=== PATIENT | male | born 1980 | race Caucasian/White ===

== ENCOUNTER → 2019-12-30 09:55 | Outpatient (CLI) | payer OTHER, SELFPAY ==
[2020-01-01 11:27] LABS: Immunoglobulin M 69 mg/dL (20-172); V-Zoster IgG (Immunity) 1857 index (Immune >165)
== END ==
PROVIDERS: Referring Provider Dermatology Pediatric Dermatology; Visit Provider Dermatology Pediatric Dermatology
DX: L08.9 Local infection of the skin and subcutaneous tissue, unspecified (principal)
CPT/HCPCS: 36415; 82784; 86787

== ENCOUNTER → 2023-05-26 | Outpatient (CLI) | payer OTHER, SELFPAY ==
[2023-05-26 11:32] LABS: Cholesterol 174 mg/dL (200); Creatinine, Serum 0.81 mg/dL (0.70-1.30); EST Glomerular Filtration Rate 110 mL/min (>60); Est Glom Filt Rate - Afr Amer 133 mL/min (>60); High Density Lipoprotein 60 mg/dL; Triglycerides 78 mg/dL; Very Low Density Lipoprotein 16 mg/dL (5-40)
[2023-05-28 09:20] LABS: Hepatitis C Antibody Non-Reactive (Nonreactive)
== END | disposition home or self-care (01) ==
LOC: LAB 10:28
PROVIDERS: PCP Family Medicine; Referring Provider Family Medicine; Visit Provider Family Medicine
DX: Z00.00 Encounter for general adult medical examination without abnormal findings (principal); Z13.220 Encounter for screening for lipoid disorders; Z11.59 Encounter for screening for other viral diseases
CPT/HCPCS: 80061; 82565; 86803

== ENCOUNTER 2023-06-05 13:10 | Day surgery (SDC) | payer OTHER, SELFPAY ==
[2023-06-05 13:27] VITALS: BP 128/82; PULSE 73; RESP 16; TEMP 36.6; O2SAT 100; BMI 22.1
--- NOTE | 2023-06-05 13:53 | HP.PCM_ITS ---
HPI - General General Date of Admission: 06/05/23 Date of Service: 06/05/23 Chief Complaint: Screening colonoscopy HPI Narrative JOSIE BASS, is a 43 M who presents [facility] Medical History (Updated 06/01/23 @ 15:09 by Jumana Noriega) Alcohol use Family hx of colon cancer Former smoker Wears contact lenses Home Medications NK 02/03/22 [History Last Taken Unknown] Allergy/AdvReac Type Severity Reaction Status Date / Time No Known Allergies Allergy Verified 06/05/23 13:27 Family History (Updated 03/09/23 @ 10:47 by Marcella Lucas) Uncle Colon cancer Grandmother Thyroid cancer Grandfather Lung cancer Mother Basal cell carcinoma Surgical History (Updated 06/01/23 @ 15:11 by Jumana Noriega) No significant past surgical history Social History (Updated 03/09/23 @ 10:48 by Marcella Lucas) household members: spouse current occupational status: employed Smoking Status: Former smoker ROS Review of Systems ROS Unobtainable: other Constitutional Constitutional: Denies fatigue, fever(s), poor appetite, weight gain or weight loss ENT HEENT: Denies mouth lesions Cardiovascular Cardiovascular: Denies abdominal bloating, abdominal edema or abdominal pain Respiratory/Chest Respiratory/Chest: Denies change in mental status, change in phlegm color, chest congestion or chest tightness Gastrointestinal Gastrointestinal: Denies belching, bloating, change in bowel habits, change in stool character, chewing difficulty, coffee ground emesis, constipation, cramping, diarrhea, dyspepsia, dysphagia, early satiety, excessive flatus, fecal incontinence, heartburn, hematemesis, hematochezia, hemorrhoids, loose stools, melena, nausea, odynophagia, rectal bleeding, tenesmus, vomiting or weight changes Genitourinary Genitourinary: Denies abdominal discomfort, burning urination or itching Musculoskeletal Musculoskeletal: Reports as per HPI; Denies muscle weakness or myalgias Integumentary Integumentary: Denies jaundice Neurologic Neurologic: Denies lack of coordination or weakness Psychiatric Psychiatric: Denies confusion, depression, memory loss, mood swings, paranoia or suicidal ideation Endocrine Endocrinology: Denies systems reviewed and no addt'l complaints, except as documented Hematologic/Lymphatic Hematologic/Lymphatic: Denies anemia, easy bleeding, easy bruising or lymphadenopathy Allergic/Immunologic Allergic/Immunologic: Denies systems reviewed and no addt'l complaints, except as documented Vital Signs Vital Signs Vital Signs: 06/05/23 13:27 06/05/23 13:27 Temperature 97.8 F Temperature Source Temporal Pulse Rate 73 Respiratory Rate 16 Respiratory Pattern Normal Blood Pressure 128/82 H Blood Pressure Mean 97 Blood Pressure Source Monitor Blood Pressure Position Semi-Fowlers Blood Pressure Location Right Arm Pulse Ox 100 Oxygen Delivery Method Room Air Weight Weight: 133 lb 6.075 oz Body Mass Index (BMI) 22.1 Physical Exam Const alert General Appearance: cooperative Orientation / Consciousness: oriented to person HEENT hearing grossly normal bilaterally Head and Scalp: normal to inspection Face and Sinus: face symmetric Nose: external nose normal Mouth: oral and palatal mucosa normal Eyes conjunctivae normal General Eye: normal appearance of both eyes Neck full ROM General: normal visual inspection Lymph Lymphatic: no lymphadenopathy noted Chest inspection of chest normal and palpation of chest normal Chest: symmetrical chest wall rise Resp normal respiratory effort Effort and Inspection: able to speak in complete sentences Cardio regular rate GI non-distended Percussion: normal to percussion Rectal Exam: deferred Neuro Speech: speech normal Gait (Neuro): normal gait Assessment & Plan Assessment/Plan (1) Encounter for screening for malignant neoplasm of colon: PLAN: He was explained alternatives, risk, benefits including outstanding bleeding, sepsis, patient, need for emergent surgery . He will have an ASA of 2.
[2023-06-05] MEDS: Lactated Ringers 1,000 ML 15 ML IV (14:00)
[2023-06-05 14:45] VITALS: BP 128/82; BP 92/47; PULSE 75; RESP 16; TEMP 36.3; O2SAT 99
[2023-06-05 14:50] VITALS: BP 102/65; BP 128/82; PULSE 72; RESP 16; O2SAT 99
--- NOTE | 2023-06-05 14:54 | OP.COLON_ITS ---
Patient Name: Brad Mclean Procedure Date: 06/05/2023 2:11 PM Date of : 1980 Age: 43 Procedure: Colonoscopy Indications: Screening for colorectal malignant neoplasm Providers: Sunny Mckee DO Referring MD: Berny Talbert Medicines: Propofol per Anesthesia Patient Profile: This is a 43 year old male. Refer to note in patient chart for documentation of history and physical. Last Colonoscopy: none. The patient's first colonoscopy is today. Complications: No immediate complications. Procedure: Pre-Anesthesia Assessment: - Prior to the procedure, a History and Physical was performed, and patient medications and allergies were reviewed. The risks and benefits of the procedure and the sedation options and risks were discussed with the patient. All questions were answered and informed consent was obtained. Patient identification and proposed procedure were verified by the physician in the pre-procedure area. Mental Status Examination: normal. Prophylactic Antibiotics: The patient does not require prophylactic antibiotics. Prior Anticoagulants: The patient has taken no anticoagulant or antiplatelet agents. ASA Grade Assessment: II - A patient with mild systemic disease. After reviewing the risks and benefits, the patient was deemed in satisfactory condition to undergo the procedure. The anesthesia plan was to use monitored anesthesia care (MAC). Immediately prior to administration of medications, the patient was re-assessed for adequacy to receive sedatives. The heart rate, respiratory rate, oxygen saturations, blood pressure, adequacy of pulmonary ventilation, and response to care were monitored throughout the procedure. The physical status of the patient was re-assessed after the procedure. After I obtained informed consent, the scope was passed under direct vision. Throughout the procedure, the patient's blood pressure, pulse, and oxygen saturations were monitored continuously. The Colonoscope was introduced through the anus and advanced to the cecum, identified by appendiceal orifice and ileocecal valve. The colonoscopy was performed without difficulty. The patient tolerated the procedure well. The quality of the bowel preparation was good. Scope In: 2:29:23 PM Scope Withdrawal Time 0 hours 7 minutes 5 seconds Scope Out: 2:40:01 PM Total Procedure Duration Time 0 hours 10 minutes 38 seconds Findings: The entire examined colon appeared normal on direct and retroflexion views. Impression: - The entire examined colon is normal on direct and retroflexion views. - No specimens collected. Recommendation: - Discharge patient to home. - Resume previous diet. - Continue present medications. - Repeat colonoscopy in 10 years for screening purposes. Procedure Code(s): --- Professional --- G0121, Colorectal cancer screening; colonoscopy on individual not meeting criteria for high risk CPT copyright 2021 [employer]. All rights reserved. The codes documented in this report are preliminary and upon faculty support coordinator review may be revised to meet current compliance requirements. Sunny Mckee DO 06/05/2023 2:54:25 PM This report has been signed electronically. Number of Addenda: 0 Note Initiated On: 06/05/2023 2:11 PM
--- NOTE | 2023-06-05 14:54 | OP.CCLET_ITS ---
06/05/2023 Berny Talbert [address] [place] [address] Re : Colonoscopy procedure for Brad Mclean Dear Dr. Talbert This procedure was performed on Monday, June 05, 2023. My impressions and recommendations are as follows: Impressions : - The entire examined colon is normal on direct and retroflexion views. - No specimens collected. Recommendations : - Discharge patient to home. - Resume previous diet. - Continue present medications. - Repeat colonoscopy in 10 years for screening purposes. My findings are described in the full procedure note, which is enclosed. If I can be of further assistance, please feel free to contact me at . Sincerely, Sunny Mckee, 06/05/2023 2:54:25 PM This report has been signed electronically.
[2023-06-05 14:55] VITALS: BP 103/66; BP 128/82; PULSE 71; RESP 16; O2SAT 99
[2023-06-05 15:00] VITALS: BP 106/79; BP 128/82; PULSE 67; RESP 16; TEMP 36.5; O2SAT 99
[2023-06-05 15:25] VITALS: BP 128/82
== END 2023-06-05 15:43 | disposition home or self-care (01) ==
LOC: EN 13:12 → AC 13:13
PROVIDERS: PCP Family Medicine; Referring Provider Family Medicine; Visit Provider Internal Medicine Gastroenterology
PROC: 0DJD8ZZ Inspection of Lower Intestinal Tract, Via Natural or Artificial Opening Endoscopic (ICD-10-PCS; CPT 45378; principal; 2023-06-05 14:10)
DX: Z12.11 Encounter for screening for malignant neoplasm of colon (principal); Z80.0 Family history of malignant neoplasm of digestive organs; Z87.891 Personal history of nicotine dependence
CPT/HCPCS: G0121; J7120; J2405